=== PATIENT | male | born 1955 | race Caucasian/White ===

== ENCOUNTER → 2017-03-12 14:33 | Outpatient (CLI) | payer BC ==
[~2017-03-12 14:33] MED LIST: BAYER CHEWABLE81 MG PO; BYETTA5 MCG/0.02 SQ; DESERYL100 MG PO; DIABETA5 MG PO; FISH OIL 1,0001 CA1 PO; GLUCOPHAGE500 MG PO; IMITREX50 MG PO; ISOSORBIDE DINI20 MG PO; ISOSORBIDE MONO30 M1 PO; KLONOPIN1 MG PO; NEURONTIN600 MG PO; NIACIN500 MG PO; NITROSTAT0.4 MG SL; PAXIL20 MG PO; PRAVACHOL20 MG PO; PRILOSEC20 MG PO; TOPROL XL100 MG PO; TYLENOL W/CODEI1 TAB PO; ULTRAM50 MG PO; VALIUM5 MG PO
== END | disposition home or self-care (01) ==
LOC: D.CN 13:30 → D.RAD 14:00 → D.CN 14:33
DX: Z01.810 Encounter for preprocedural cardiovascular examination (principal); I10 Essential (primary) hypertension; R00.1 Bradycardia, unspecified

== ENCOUNTER → 2018-07-30 09:09 | Outpatient (CLI) | payer BC | END | disposition home or self-care (01) | LOC: D.CT 09:09 | DX: I70.219 Atherosclerosis of native arteries of extremities with intermittent claudication, unspecified extremity (principal) ==

== ENCOUNTER → 2018-08-17 09:09 | Outpatient (CLI) | payer BC ==
[~2018-08-17] VITALS: Ht 172.7 cm; Wt 111.4 kg
--- NOTE | ~2018-08-17 | HEMODYNAMI ---
PATIENT:REMEDIOS LAGUNA MEDICAL RECORD: [id number] : 59 LOCATION:[facility] ADMISSION DATE: 08/17/18 Generatedon:08/17/201811:09 Patient name: REMEDIOS LAGUNA Patient #: [id number] SSN: : 1955 Date of study: 08/17/2018 Page: Of Hemodynamic Procedure Report Patient Data Patient Demographics Procedure consent was obtained First Name: REMEDIOS Gender: Male Last Name: JASE : 1955 [facility] Initial: KIM Age: 63 year(s) Patient #: [id number] Race: Additional ID: [id number] Contact details Address: [place] [address] State: [place] City: [place] Zip code: [address] Admission Admission Data Admission Date: 08/17/2018 Admission Time: 9:09 Arrival Date: 08/17/2018 Arrival Time: 0:00 Height (in.): 69 BSA: 2.25 (m2) Height (cm.): 175.26 BMI: 36.03 (kg/m2) Weight (lbs.): 244 Weight (kg.): 110.68 Lab Results Lab Result Date: 08/17/2018 Lab Result Time: 0:00 Biochemistry Name Units Result Min Max BUN mg/dl 11 --(-*--)-- 7 18 Creatinine mg/dl 0.7 --(*---)-- 0.6 1.3 CBC Name Units Result Min Max Hemoglobin g/dl 15.6 --(--*-)-- 13.5 17.5 Procedure Procedure Types Cath Procedure Peripheral Cath Diagnostic Procedure 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 Procedures Sqzuu-Dunedmt-Iat-Off Procedure Description Procedure Date Procedure Date: 08/17/2018 Procedure Start Time: 11:01 Procedure End Time: 11:08 Procedure Staff Name Function Malcom Garg MD Performing Physician Francisco Diaz RT Monitor Modesto Salazar RN Nurse Ursula Foley RT Scrub Procedure Data Cath Procedure Fluoroscopy Diagnostic fluoroscopy Total fluoroscopy Time: 0.2 time: 0.2 min min Diagnostic fluoroscopy Total fluoroscopy dose: 168 dose: 168 mGy mGy Contrast Material Contrast Material Type Amount (ml) Isovue 300 31 Entry Location Entry Primary Successful Side Size Upsize Upsize Entry Closure Succes sful Closure Location (Fr) 1 (Fr) 2 (Fr) Remarks Device Remarks Femoral Right 5 Fr Exoseal artery Estimated blood loss: 10 ml Diagnostic catheters Device Type Used For End Catheter Placement DIAGNOSTIC UF 5Fr Procedure catheter ([id number]) Procedure Complications No complications Procedure Medications Medication Administration Route Dosage 0.9% NaCl I.V. 100 ml/hr Oxygen etCO2 Nasal cannula 2 l/min Heparin Flush Bag added to field 2 bags (1000units/500ml NS) Lidocaine 2% added to field 20 Versed I.V. 2 mg Fentanyl I.V. 100 mcg Versed I.V. 2 mg Fentanyl I.V. 100 mcg Hemodynamics Rest BSA: 2.25 (m2) HGB: 15.6 (g/dl) O2 Consumption: Estimated: 247.9 (ml/min) O2 Con sumption indexed: Estimated:110.18 (ml/min/m) Heart Rate: 51 (bpm) Snapshots Pre Cath Intra NCS Post Cath Vital Signs Time Heart Resp SPO2 etCO2 NIBP (mmHg) Rhythm Pain Sedation Rate (ipm) (%) (mmHg) Status Level (bpm) 10:53:35 51 17 99 15.8 163/86(135) NSR 0 (11) 10(A) , No pain 10:57:46 50 16 98 37.7 142/77(111) NSR 0 (11) 10(A) , No pain 11:02:05 47 19 97 58 135/63(100) NSR 0 (11) 10(A) , No pain 11:06:16 49 17 91 46 147/74(103) NSR 0 (11) 10(A) , No pain Medications Time Medication Route Dose Verified Delivered Reason Notes Eff ectiveness by by 10:51:01 0.9% NaCl I.V. 100 [place] Per ml/hr Martin Salazar physician RN RN 10:51:09 Oxygen etCO2 2 [place] Per Nasal l/min Martin Salazar physician cannula RN RN 10:51:22 Heparin Flush added 2 [place] used for Bag to bags Lorigan Lorigan procedure (1000units/500ml field RN RN NS) 10:51:32 Lidocaine 2% added 20ml [place] for local to vial Lorigan Lorigan anesthetic field RN RN 11:00:31 Versed I.V. 2 mg [place] for Lorigan Lorigan sedation RN RN 11:00:39 Fentanyl I.V. 100 [place] for mcg Lorigan Lorigan sedation RN RN 11:02:33 Versed I.V. 2 mg [place] for Lorigan Lorigan sedation RN RN 11:02:39 Fentanyl I.V. 100 [place] for mcg Lorigan Lorigan sedation RN culinary manager Log Time Note 10:33:14 Arrival Date: 08/17/2018 12:00:00 AM 10:33:46 Patient Height : 69 inches 10:33:51 Patient Weight : 244 lbs 10:34:23 Lab Result : Hemoglobin 15.6 g/dl 10:34:23 Lab Result : Creatinine 0.7 mg/dl 10:34:23 Lab Result : BUN 11 mg/dl 10:35:08 Diagnostic Cath status Elective 10:35:12 Modesto Salazar RN sent for patient. Start room use. 10:35:13 Time tracking: Regular hours (M-F 7:00 - 5:00) 10:35:19 Plan of Care:Hemodynamics will remain stable., Cardiac rhythm will remain stable., Comfort level will be maintained., Respiratory function will remain adequate., Patient/ family verbilizes understanding of procedure., Procedure tolerated without complication., Recovers from procedure without complications.. 10:46:24 Patient received from Pre/Post Procedure Room to CCL 2 Alert and oriented. Tansferred to table in Supine position. 10:46:25 Warm blankets applied, and alexis hugger turned on for patient comfort. 10:46:25 Correct patient and procedure confirmed by team. 10:46:27 Signed procedure consent form obtained from patient. 10:46:27 ECG and BP/O2 sat monitors applied to patient. 10:51:01 0.9% NaCl 100 ml/hr I.V. was administered by Modesto Salazar RN; Per physician; 10:51:09 Oxygen 2 l/min etCO2 Nasal cannula was administered by Modesto Salazar RN; Per physician; 10:51:22 Heparin Flush Bag (1000units/500ml NS) 2 bags added to field was administered by Modesto Salazar RN; used for procedure; 10:51:32 Lidocaine 2% 20ml vial added to field was administered by Modesto Salazar RN; for local anesthetic; 10:51:39 Vital chart was started 10:54:31 Baseline sample Acquired. 10:54:38 Rhythm: sinus bradycardia 10:54:39 Full Disclosure recording started 10:54:48 H&P Date Dictated: 08/17/2018 New H&P dictated by physician.. 10:54:49 Pre-procedure instructions explained to patient. 10:54:49 Pre-op teaching completed and patient verbalized understanding. 10:54:55 Family in patients room. 10:54:56 Patient NPO since Midnight. 10:54:59 Is the patient allergic to Iodine/contrast media? No. 10:55:58 Is patient on blood thinner?No 10:56:00 Patient diabetic? Yes. 10:56:01 If diabetic: On Metformin? Yes 10:56:12 If on Metformin: Last Dose? 08/15/2018 10:56:14 Previous problem with sedation/anesthesia? No ? 10:56:15 Snore? Yes 10:56:21 Sleep apnea? No 10:56:22 Deviated septum? No 10:56:23 Opens mouth fully? Yes 10:56:24 Sticks out tongue? Yes 10:56:26 Airway obstruction? No ? 10:56:28 Dentures? No ? 10:56:41 Pre procedure: right dorsailis pedis pulse 1+ Palpable, but thready & weak; easily obliterated 10:56:43 Pre procedure: left dorsailis pedis pulse 1+ Palpable, but thready & weak; easily obliterated 10:56:45 Patient pain scale 0/10 ?. 10:56:52 IV patent on arrival in left forearm with 0.9% NaCl at [facility]. 10:56:54 Lab results completed and on chart. 10:57:14 Bilateral groins area was prepped with chlora-prep and draped in sterile fashion 10:57:15 Alarms reviewed by RNilay N. 10:57:16 Sharps counted by scrub and verified by R.N. 10:58:10 --------ALL STOP TIME OUT------ 10:58:10 Final Timeout: patient, procedure, and site verified with staff and physician. All members of the team are in agreement. 10:58:14 Bilateral groins site verified by team. 10:58:17 Physical assessment completed. ASA score P 2 - A patient with mild systemic disease as per Malcom Garg MD. 10:58:20 Sedation plan: IV Moderate Sedation Medication:Versed, Fentanyl 11:00:31 Versed 2 mg I.V. was administered by Modesto Salazar RN; for sedation; 11:00:39 Fentanyl 100 mcg I.V. was administered by Modesto Salazar RN; for sedation; 11:00:49 Use device set Femoral Dx 11:00:52 Tegaderm 4 x 4 (1626W) opened to sterile field. 11:00:53 ACIST Manifold (66325) opened to sterile field. 11:00:53 ACIST Hand Control (49914) opened to sterile field. 11:00:55 ACIST Syringe (14980) opened to sterile field. 11:00:56 Bag Decanter (2002S) opened to sterile field. 11:00:56 Medline Cath Pack ([id number]) opened to sterile field. 11:00:59 SHEATH 5FR [place] (LYV017) opened to sterile field. 11:01:23 Procedure started. 11:01:26 Local anesthetic to right femoral artery with Lidocaine 2% by Malcom Garg MD.INITIAL ACCESS ONLY 11:02:23 A 5 Fr sheath was inserted into the Right Femoral artery 11:02:28 A DIAGNOSTIC UF 5Fr catheter ([id number]) was advanced over the wire and used for Procedure. 11:02:33 Versed 2 mg I.V. was administered by Modesto Salazar RN; for sedation; 11:02:39 Fentanyl 100 mcg I.V. was administered by Modesto Salazar RN; for sedation; 11:02:45 Abdominal Aortagram was performed. 11:02:49 Left leg runoff performed. 11:02:50 Right leg runoff performed. 11:03:35 Injector settings: Ml/sec: 10, Volume: 20, 11:03:37 Catheter removed. 11:03:40 EXOSEAL 5Fr (EX500) opened to sterile field. 11:03:50 Sheath removed intact; hemostasis achieved with Exoseal to the Right Femoral artery. 11:03:52 Procedure ended.(Physican Out) 11:04:03 Fluoroscopy time 00.20 minutes. 11:04:07 Fluoroscopy dose: 168 mGy 11:04:07 Flurop Dose total: 168 11:04:12 Contrast amount:Isovue 300 31ml. 11:04:13 Sharps counted by scrub and verified by R.N. 11:04:14 Insertion/operative site no bleeding no hematoma. 11:04:18 Post-op/insertion site Right Femoral artery dressed using a 4 x 4 and Tegaderm. 11:04:20 Post Procedure Pulses reassessed and unchanged 11:04:22 Post-procedure physical assessment completed. ASA score P 2 - A patient with mild systemic disease as per Malcom Garg MD. 11:04:25 Post procedure rhythm: unchanged. 11:04:27 Estimated blood loss: 10 ml 11:04:28 Post procedure instruction explained to patient.Patient verbalizes understanding. 11:04:29 Patient needs reinforcement of post procedure teaching. 11:04:38 Procedure and supply charges have been captured, reviewed, submitted and are correct. 11:04:41 Procedure Complication : No complications 11:05:00 DIAGNOSTIC WIRE .035 260cm J wire ([id number]) opened to sterile field. 11:08:34 Vital chart was stopped 11:08:35 See physician's report for complete and final results. 11:08:38 Report given to Pre/Post Procedure Room. 11:08:42 Patient transfered to Pre/Post Procedure Room with Stretcher. 11:08:45 Procedure ended. 11:08:45 Full Disclosure recording stopped 11:08:55 End room use (Document Last) Device Usage Item Name Manufacture Quantity Catalog Hospital Part Current Minimal L ot# / Number Charge Number Stock Stock Serial# Code Tegaderm 4 3M 1 1626W [id number] 084824 836001 5 x 4 (1626W) ACIST Acist 1 00797 472653 704025 005989 5 Manifold Medical (71718) Systems Inc ACIST Hand Acist 1 28455 532900 406793 524481 5 Control Medical (94824) Systems Inc ACIST Acist 1 48504 556757 190955 181170 20 Syringe Medical (41411) Systems Inc Bag Microtek 1 884753 83571 724979 5 Decanter Medical Inc. (2002S) Medline Medline 1 [id number] 566930 33235 312179 5 Cath Pack ([id number]) SHEATH 5FR Terumo 1 UVO899 399522 597854 320877 5 Avoca (BMV302) DIAGNOSTIC Cardinal 1 [id number] 684598 956284 879428 10 UF 5Fr Health catheter ([id number]) EXOSEAL 5Fr Cardinal 1 EX500 394405 173762 083960 10 (EX500) Health DIAGNOSTIC [facility] [place] 1 997780 003739 159937 632679 30 WIRE .035 260cm J wire (823456) Signature Audit [place] Stage Time Signature Unsigned Intra-Procedure 08/17/2018 Francisco Diaz 11:09:11 AM RT(R) Signatures Monitor : Francisco Diaz RT Signature : Date : Time : [address] [address]
--- NOTE | ~2018-08-17 | OP ---
PATIENT NAME: REMEDIOS LAGUNA MEDICAL RECORD: [id number] :59 LOCATION:[facility] ADMISSION DATE: SURGEON: BETO HEWITT MD DATE OF OPERATION: 08/17/2018 PROCEDURES: 1. Aortofemoral runoff. 2. Abdominal aortography. INDICATION: Leg pain compatible with claudication, peripheral vascular disease, previous WEEDER THINNER stent. PROCEDURE IN DETAIL: After informed consent was obtained and after a detailed description of the risks, benefits as well as alternative therapies, the patient elected to proceed with angiogram and aortofemoral runoff. The right femoral area was prepped and draped in normal sterile fashion. Right femoral artery was cannulated via modified Seldinger technique with placement of 6-Canadian sheath. All catheters exchanged through this sheath. FINDINGS: The abdominal aortography was performed. The catheter was pulled down for aortofemoral runoff. Abdominal aortography reveals no significant abdominal aortic disease, no dissection or aneurysm formation. RIGHT LEG: A. Iliac: The common internal and external iliacs have moderate irregularities, but no flow-limiting stenosis. B. Femoral system: The common superficial and deep femoral have moderate irregularities, but no flow-limiting stenosis. C. Popliteal and infrapopliteal vessels are widely patent with 3-vessel runoff to the foot. LEFT LEG: A. Iliac: The common internal and external iliacs have moderate irregularities, but no flow-limiting stenosis. B. Femoral system: The common and deep femoral are widely patent. Superficial femoral has a previously placed stent. This is widely patent with no significant restenosis. No disease elsewise throughout the superficial femoral or its branches. C. Popliteal and infrapopliteal vessels are patent with good 3-vessel runoff to the foot. OVERALL IMPRESSION: No significant peripheral vascular disease is present, wide patency of the previously placed stent. Leg pain at this time is nonarteriovascular. TRANSINT:[id number] Voice Confirmation ID: [id number] DOCUMENT ID: [id number] OPERATIVE REPORT [id number] IKEREMEDIOS AVILA BETO CARRASCO MD at 1324 CC: [id number] DICTATION DATE: 08/17/18 1107 ASSOCIATE SCIENTIST: 08/17/18 1210 [facility] [address] [place] [address]
[2018-08-17 09:35] VITALS: BP 148/67; Ht 172.7 cm; Wt 111.4 kg
[2018-08-17 10:08] LABS: BASOPHILS 0.1 % (0-2); EOSINOPHILS 1.9 % (0-7); HEMATOCRIT 42.2 % (42.0-54.0); HEMOGLOBIN 15.6 g/dL (13.5-17.5); IMMATURE GRANULOCYTES 0.3 % (0-5); LYMPHOCYTES 33.8 % (15-50); MCH 31.7 pg (26.0-34.0); MCV 85.8 fL (80.0-100.0); MEAN PLATELET VOLUME 12.3 fL (7.4-10.4); MONOCYTES 6.5 % (2-11); NEUTROPHILS 57.4 % (40-80); PLATELET COUNT 106 10x3/uL (130-400); RBC 4.92 10x6/uL (4.20-6.10); RDW 12.6 % (11.5-14.5); WBC 7.2 10x3/uL (4.8-10.8)
[2018-08-17 10:18] LABS: CALC OSMOLALITY 276 mosm/kg (275-300); CARBON DIOXIDE 27.2 mmol/L (21.0-32.0); CHLORIDE - SERUM 103 mmol/L (98-107); CREATININE - SERUM 0.7 mg/dL (0.6-1.3); SODIUM 139 mmol/L (136-145); UREA NITROGEN 11 mg/dL (7-18); eGFR NON AFRICAN AMERICAN > 90 mL/min (90-120)
[2018-08-17 10:20] LABS: GLUCOSE 106 mg/dL (74-106); POTASSIUM - SERUM 5.5 mmol/L (3.5-5.1)
== END | disposition home or self-care (01) ==
LOC: D.CATH 09:09
PROVIDERS: Internal Medicine Interventional Cardiology
DX: M79.606 Pain in leg, unspecified (principal); Z01.812 Encounter for preprocedural laboratory examination